=== PATIENT | female | born 1950 | race Caucasian/White ===

== ENCOUNTER 2022-10-25 11:08 | Outpatient (REF) | payer MEDICARE, OTHER, SELFPAY ==
--- NOTE | ~2022-10-25 | XR_ITS ---
EXAMINATION: XR hand wrist LT, XR hand wrist RT CLINICAL INFORMATION: Rheumatoid arthritis COMPARISON: None TECHNIQUE: 4 views of the bilateral hands and wrists FINDINGS: RIGHT HAND/WRIST: No fracture or dislocation. Osteopenia. Advanced osteoarthritis involving the hand and wrist with complete loss of triscaphe joint space and loss of interphalangeal joint space, with a gullwing deformity third and to a lesser extent fourth and fifth DIP joint spaces which may reflect erosive osteoarthritis. Loss of second through fourth metacarpophalangeal joint space with a periarticular cortical erosion of the base of the second proximal phalanx which could be seen in the setting of inflammatory arthropathy such as rheumatoid arthritis. Soft tissues are unremarkable. LEFT HAND/WRIST: No fracture or dislocation. Moderate osteoarthritis involving the triscaphe joint with loss of joint space with advanced degenerative changes of the distal interphalangeal joints with loss of joint space and osteophytosis with a gullwing deformity involving the third through fifth distal interphalangeal joints which be seen in the setting of erosive osteoarthritis. No cortical erosion. Soft tissues are unremarkable. XR/XR hand wrist LT IMPRESSION: 1. Right hand and wrist: Advanced osteoarthritis involving the hand and wrist with a gullwing deformity third and to a lesser extent fourth and fifth DIP joint spaces which may reflect erosive osteoarthritis. Loss of second through fourth metacarpophalangeal joint space with a periarticular cortical erosion of the base of the second proximal phalanx which could be seen in the setting of inflammatory arthropathy such as rheumatoid arthritis. 2. Left: Moderate osteoarthritis involving the triscaphe joint with loss of joint space with osteophytosis with a gullwing deformity involving the third through fifth distal interphalangeal joints which be seen in the setting of erosive osteoarthritis.
--- NOTE | ~2022-10-25 | XR_ITS ---
EXAMINATION: XR hand wrist LT, XR hand wrist RT CLINICAL INFORMATION: Rheumatoid arthritis COMPARISON: None TECHNIQUE: 4 views of the bilateral hands and wrists FINDINGS: RIGHT HAND/WRIST: No fracture or dislocation. Osteopenia. Advanced osteoarthritis involving the hand and wrist with complete loss of triscaphe joint space and loss of interphalangeal joint space, with a gullwing deformity third and to a lesser extent fourth and fifth DIP joint spaces which may reflect erosive osteoarthritis. Loss of second through fourth metacarpophalangeal joint space with a periarticular cortical erosion of the base of the second proximal phalanx which could be seen in the setting of inflammatory arthropathy such as rheumatoid arthritis. Soft tissues are unremarkable. LEFT HAND/WRIST: No fracture or dislocation. Moderate osteoarthritis involving the triscaphe joint with loss of joint space with advanced degenerative changes of the distal interphalangeal joints with loss of joint space and osteophytosis with a gullwing deformity involving the third through fifth distal interphalangeal joints which be seen in the setting of erosive osteoarthritis. No cortical erosion. Soft tissues are unremarkable. XR/XR hand wrist RT IMPRESSION: 1. Right hand and wrist: Advanced osteoarthritis involving the hand and wrist with a gullwing deformity third and to a lesser extent fourth and fifth DIP joint spaces which may reflect erosive osteoarthritis. Loss of second through fourth metacarpophalangeal joint space with a periarticular cortical erosion of the base of the second proximal phalanx which could be seen in the setting of inflammatory arthropathy such as rheumatoid arthritis. 2. Left: Moderate osteoarthritis involving the triscaphe joint with loss of joint space with osteophytosis with a gullwing deformity involving the third through fifth distal interphalangeal joints which be seen in the setting of erosive osteoarthritis.
--- NOTE | ~2022-10-25 | XR_ITS ---
EXAMINATION: XR ELBOW, LEFT CLINICAL INFORMATION: Left elbow rheumatoid arthritis, unspecified COMPARISON: None available. TECHNIQUE: AP, lateral, and oblique views of the left elbow. FINDINGS: No evidence for acute bony fracture or dislocation. The left radial head appears to be intact. No appreciable distention of the elbow fat pads. There is no evidence for erosive process. XR/XR elbow LT min 3V IMPRESSION: No evidence for acute process.
--- NOTE | ~2022-10-25 | XR_ITS ---
EXAMINATION: XR ELBOW, RIGHT CLINICAL INFORMATION: Right elbow rheumatoid arthritis, unspecified COMPARISON: None available. TECHNIQUE: AP, lateral, and oblique views of the right elbow. FINDINGS: No evidence for acute fracture or dislocation. Minimal spurring of the lateral epicondylar surface. There is a small ossicle adjacent to the medial epicondyle. No distinct erosive process. XR/XR elbow RT min 3V IMPRESSION: No evidence for acute process. Minimal degenerative changes.
[2022-10-25 12:19] LABS: MANUAL DIFF FLAG NO
[2022-10-25 13:36] LABS: Basophils Absolute Auto 0.1 X10*3/uL (0.0-0.2); Eosinophils Absolute Auto 0.2 X10*3/uL (0.0-0.4); Eosinophils Percent Auto 3.3 % (0-4); Hematocrit 41.6 % (37.0-47.0); Hemoglobin 13.4 g/dl (12.0-16.0); Imm Gran Abs Auto 0.03 X10*3/uL (0.00-0.03); Imm Gran Pct Auto 0.5 % (0.0-0.4); Lymphocytes Absolute Auto 1.4 X10*3/uL (1.2-4.9); Mean Corpuscular HGB Conc 32.2 g/dl (31.0-35.0); Mean Corpuscular Hemoglobin 29.8 pg (27.0-33.0); Mean Corpuscular Volume 92.4 fL (80.0-98.0); Mean Platelet Volume 9.2 fL (9.4-12.3); Monocytes Absolute Auto 0.6 X10*3/uL (0.1-1.2); Monocytes Percent Auto 8.9 % (2-11); Neutrophils Percent Auto 64.3 % (45-73); Platelet Count 362 X10*3/uL (160-400); White Blood Count 6.2 X10*3/uL (4.8-10.8)
[2022-10-25 14:15] LABS: Erythrocyte Sedimentation Rate 13 MM/HR (0-20)
[2022-10-25 14:20] LABS: Alanine Aminotransferase 14 U/L (0-31); Albumin Level 4.1 g/dL (3.5-5.0); Alkaline Phosphatase 71 U/L (39-117); Anion Gap 12 (12-20); Aspartate Amino Transferase 21 U/L (5-31); Bilirubin Total 0.3 mg/dL (0.0-1.0); Blood Urea Nitrogen 18 mg/dL (9-16); C Reactive Protein 0.73 mg/dL (< or = 0.50); Calcium 9.1 mg/dL (8.4-10.2); Carbon Dioxide 25 mmol/L (22-29); Chloride 102 mmol/L (96-108); Estimated Glomerular Filt Rate > 60; Glucose Random 86 mg/dL (60-115); Potassium 4.7 mmol/L (3.3-5.1); Sodium 134 mmol/L (135-145); Total Protein 6.9 g/dL (6.5-8.0)
[2022-10-25 16:09] LABS: Rheumatoid Factor < 13.0 IU/mL (<15.0)
[2022-10-26 04:22] LABS: HBS Num1 0.39 mIU/mL (0-7.99); HBc Num1 0.07 S/CO (0.00-0.79); Hepatitis A Antibody IgM 0.17 Index (0-0.79); Hepatitis B Core Antibody Nonreactive (Nonreactive); Hepatitis B Surface Antigen Negative (Negative); ~HepC Num1 0.06 S/CO (0.00-0.79); ~Hepatitis A Antibody IgM Nonreactive (Nonreactive); ~Hepatitis B Surface Antibody NONREACTIVE (Nonreactive); ~Hepatitis C Antibody Nonreactive (Nonreactive)
[2022-10-27 12:18] LABS: Prot Elec - Albumin 4.2 g/dL (3.8-4.8); Prot Elec - Alpha1 0.3 g/dL (0.2-0.3); Prot Elec - Alpha2 0.8 g/dL (0.5-0.9); Prot Elec - Beta 1 0.5 g/dL (0.4-0.6); Prot Elec - Beta 2 0.3 g/dL (0.2-0.5); Prot Elec - Gamma 0.6 g/dL (0.8-1.7); Prot Elec - Total Protein 6.7 g/dL (6.1-8.1)
[2022-10-27 17:03] LABS: TS Negative Control Passed; TS Panel A 0; TS Panel B 0; TS Positive Control Passed; TSpotTB Negative (Negative)
[2022-10-28 12:38] LABS: IgA 79 mg/dL (70-320); IgG 657 mg/dL (600-1540); IgM 27 mg/dL (50-300)
[2022-10-28 15:32] LABS: Cyclic Citrullinated Peptide <16 UNITS
[2022-10-29 18:44] LABS: HLA B27 Negative (Negative)
== END 2022-10-25 11:09 | disposition home or self-care (01) ==
LOC: HO.XRAY 11:08
PROVIDERS: Visit Provider Student in an Organized Health Care Education/Training Program
DX: M06.9 Rheumatoid arthritis, unspecified (principal); M18.11 Unilateral primary osteoarthritis of first carpometacarpal joint, right hand; M25.50 Pain in unspecified joint; M79.7 Fibromyalgia; M81.0 Age-related osteoporosis without current pathological fracture; Z11.59 Encounter for screening for other viral diseases; Z11.7 Encounter for testing for latent tuberculosis infection; Z79.899 Other long term (current) drug therapy; Z72.89 Other problems related to lifestyle
CPT/HCPCS: 36415; 73080; 73110; 73130; 80053; 82784; 84165; 85025; 85652; 86140; 86200; 86334; 86431; 86481; 86704; 86706; 86709; 86803; 86812; 87340; 99202

== ENCOUNTER 2022-10-25 11:08 | Outpatient (AMB) | payer MEDICARE, SELFPAY ==
--- NOTE | 2022-10-25 11:12 | MHC.OFFVIS ---
Intake Vital Signs 10/25/22 11:13 Height 5 ft Weight 201 lb 11.567 oz BMI 39.4 BP 142/78 H Blood Pressure Location Rt brachial Position Sitting Pulse 50 Pulse Source Pulse Oximeter Temp 97.2 F Temp Source Skin Pulse Oximetry (%) 94 Intake Visit Reasons: FM Intake Note: New pt presents today for FM consult. 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 Accompanied by: Self / Same As Patient Allergies azithromycin [From Zithromax] Allergy (Mild, Verified 10/25/22 11:16) Hives bupropion Allergy (Mild, Verified 10/25/22 11:16) Unknown vaccine adjuvant system, AS01B lipo [From Shingrix (PF)] Allergy (Mild, Verified 10/25/22 11:16) Rash varicella-zoster virus glycoprotein [From Shingrix (PF)] Allergy (Mild, Verified 10/25/22 11:16) Rash chant ix Allergy (Severe, Uncoded 10/25/22 11:16) Unknown Medication List - Last Reconciled 10/25/22 by Jeffery Hansen MD alendronate 70 mg PO QWEEK ferrous sulfate (FeroSul) 325 mg PO Q OTHER DAY fluoxetine 40 mg PO DAILY gabapentin 100 mg PO TID hydrochlorothiazide 12.5 mg PO DAILY lisinopril 20 mg PO DAILY omeprazole 20 mg PO DAILY propranolol ER 120 mg PO DAILY ropinirole 0.25 mg PO BEDTIME sulfasalazine 0.5 grams PO BID topiramate 25 mg PO DAILY trazodone 100 mg PO BEDTIME HPI HPI Comments History of Present Illness Details This is a 72-year-old female with past medical history fibromyalgia, rheumatoid arthritis who presents as a new patient. Her previous camp recreation specialist left the practice. Patient states that she was diagnosed with rheumatoid arthritis by Dr. Azul with a 10 years ago. She has been on multiple meds, she does not recall her name but she has been on sulfasalazine for years now. Patient states that she has diffuse pain everywhere. She gets intermittent pain in her elbows, both thumbs as well as ankles and feet. Takes Tylenol in the morning and can take another 1 at night. Hot shower also helps. [facility] Medical History (Updated 10/25/22 @ 11:46 by Jeffery Hansen MD) Abnormal findings on diagnostic imaging of breast Anemia Anxiety Atrophic vaginitis Cardiac arrhythmia Degenerative joint disease Essential hypertension Essential tremor Fracture of radius Insomnia Major depressive disorder Morbid obesity Polyp of colon Prolonged QT interval Restless legs Surgical History H/O total hysterectomy History of bariatric surgery History of carpal tunnel surgery History of cataract surgery History of tonsillectomy Family History Mother Malignant neoplasm of uterus Father Diabetes mellitus type 2, controlled Paternal Uncle Alcoholism Brother Cerebrovascular accident Social History Household Members: Spouse Alcohol intake: current Alcohol intake frequency: holidays/special occasions only Patient Tobacco Use Status: Never used Tobacco Current occupational status: retired 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, 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, 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Review of Systems Const Reports fatigue and Reports weakness Eyes Reports itchy eyes and Reports eye pain Card Reports dyspnea Resp Reports dyspnea Musc Reports arthralgias and Reports stiffness Neuro Reports weakness Endo Reports fatigue Aller/Immun Reports itchy eyes Physical Exam Vital Signs: Last Vital Signs Temp 97.2 F 10/25/22 11:13 Pulse 50 10/25/22 11:13 BP 142/78 H 10/25/22 11:13 Pulse Ox 94 10/25/22 11:13 BMI result Body Mass Index 39.4 Const General: cooperative, healthy appearing and comfortable Nutritional Appearance: obese Orientation/consciousness: patient oriented x3 Limitations: no limitations HEENT Head: Yes normocephalic and Yes atraumatic Mouth: moist mucous membranes Resp Effort & Inspection: normal respiratory effort and able to speak in complete sentences Auscultation: clear to auscultation bilaterally Cardio Rate: regular rate Rhythm: regular rhythm Skin General skin exam: no rashes or lesions noted Neuro General: patient oriented x3 Extrem Other: Mild osteoarthritic changes of both hands with Heberden's nodes Bilateral 1st CMC joint tenderness Positive grind test with pain and crepitus bilaterally Mild right wrist swelling and tenderness Bilateral wrist pain with full flexion and extension Right elbow pain with full extension Normal range of motion of both shoulders Mild pain with left knee flexion Bilateral diffuse MTP tenderness Diffuse fibromyalgia tender points Assessment & Plan Assessment & Plan (1) Rheumatoid arthritis: Code(s): M06.9 - Rheumatoid arthritis, unspecified Qualifiers: Rheumatoid arthritis location: multiple sites Rheumatoid factor presence: unspecified presence Qualified Code(s): M06.9 - Rheumatoid arthritis, unspecified Plan: This is a 72-year-old female was referred for evaluation of fibromyalgia. Patient states that she was diagnosed with rheumatoid arthritis about [address] Azul. States that she has been on sulfasalazine consistently for years now. Will request records from Dr. Azul. Check labs to monitor disease active. Check x-rays of hands and elbows (2) Degenerative arthritis of thumb: Code(s): M18.10 - Unilateral primary osteoarthritis of first carpometacarpal joint, unspecified hand Qualifiers: Laterality: right Qualified Code(s): M18.11 - Unilateral primary osteoarthritis of first carpometacarpal joint, right hand Plan: Check bilateral hand x-rays. Patient can continue to take Tylenol. Advised patient to try using Voltaren gel 4 times a day. Patient's daughter is an occupational therapist, advised patient to discuss hand osteoarthritis with her. Consider buying paraffin wax machine. Can consider injection in the future (3) Osteoporosis: Code(s): M81.0 - Age-related osteoporosis without current pathological fracture Plan: Managed by PCP (4) Fibromyalgia: Code(s): M79.7 - Fibromyalgia Plan: Managed by PCP Plan I spent 47 minutes reviewing patient's chart, evaluating patient, ordering diagnostic workup, counseling patient and documenting in the chart Orders: Orders Cyclic Citrullinated Peptide Today M06.9 - Rheumatoid arthritis, unspecified Comprehensive Met. Panel Today M06.9 - Rheumatoid arthritis, unspecified C Reactive Protein Today M06.9 - Rheumatoid arthritis, unspecified Rheumatoid Factor Today M06.9 - Rheumatoid arthritis, unspecified Complete Blood Count Auto Diff Today M06.9 - Rheumatoid arthritis, unspecified Erythrocyte Sedimentation Rate Today M06.9 - Rheumatoid arthritis, unspecified HLA B27 Today M25.50 - Pain in unspecified joint Immunofixation Pnl, Serum Today M06.9 - Rheumatoid arthritis, unspecified Protein Electrophoresis, Serum Today M06.9 - Rheumatoid arthritis, unspecified Hepatitis A,B,C Profile Today Z11.59 - Encounter for screening for other viral diseases T Spot TB Today Z11.7 - Encounter for testing for latent tuberculosis infection XR elbow LT min 3V Today M06.9 - Rheumatoid arthritis, unspecified XR elbow RT min 3V Today M06.9 - Rheumatoid arthritis, unspecified XR hand wrist LT Today M06.9 - Rheumatoid arthritis, unspecified XR hand wrist RT Today M06.9 - Rheumatoid arthritis, unspecified Coding Level of Care Code New Pt Level 4 (05834) Diagnoses Rheumatoid arthritis M06.9 Rheumatoid arthritis location: multiple sites Rheumatoid factor presence: unspecified presence Degenerative arthritis of thumb M18.11 Laterality: right Osteoporosis M81.0 Fibromyalgia M79.7
[2022-10-25 11:13] VITALS: BP 142/78; PULSE 50; TEMP 36.2; O2SAT 94; BMI 39.4
== END 2022-10-25 11:41 | disposition home or self-care (01) ==
PROVIDERS: PCP Physician Assistant Medical; Visit Provider Student in an Organized Health Care Education/Training Program
DX: M06.9 Rheumatoid arthritis, unspecified (principal); M18.11 Unilateral primary osteoarthritis of first carpometacarpal joint, right hand; M81.0 Age-related osteoporosis without current pathological fracture; M79.7 Fibromyalgia
CPT/HCPCS: 99204

== ENCOUNTER 2022-12-28 10:43 | Outpatient (AMB) | payer MEDICARE, SELFPAY ==
--- NOTE | 2022-12-28 10:44 | MHC.OFFVIS ---
Intake Vital Signs 12/28/22 10:45 Height 5 ft Weight 205 lb 0.478 oz BMI 40.0 BP 112/64 Blood Pressure Location Rt brachial Position Sitting Pulse 52 Pulse Source Pulse Oximeter Temp 97.1 F Temp Source Skin Pulse Oximetry (%) 95 Intake Visit Reasons: RA/OA Intake Note: Pt last seen 10/25/22, presents today for follow up and test results. Managing with tylenol and voltaren gel. 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 Accompanied by: Self / Same As Patient Allergies azithromycin [From Zithromax] Allergy (Mild, Verified 12/28/22 10:51) Hives bupropion Allergy (Mild, Verified 12/28/22 10:51) Unknown vaccine adjuvant system, AS01B lipo [From Shingrix (PF)] Allergy (Mild, Verified 12/28/22 10:51) Rash varicella-zoster virus glycoprotein [From Shingrix (PF)] Allergy (Mild, Verified 12/28/22 10:51) Rash chant ix Allergy (Severe, Uncoded 12/28/22 10:51) Unknown Medication List - Last Reconciled 12/28/22 by Jeffery Hansen MD alendronate 70 mg PO QWEEK ferrous sulfate (FeroSul) 325 mg PO Q OTHER DAY fluoxetine 40 mg PO DAILY gabapentin 100 mg PO TID hydrochlorothiazide 12.5 mg PO DAILY ibuprofen (Advil) 400 mg PO Q6H PRN lisinopril 20 mg PO DAILY omeprazole 20 mg PO DAILY propranolol ER 120 mg PO DAILY ropinirole 0.25 mg PO BEDTIME sulfasalazine 0.5 grams PO BID topiramate 25 mg PO DAILY trazodone 100 mg PO BEDTIME HPI HPI Comments History of Present Illness Details 72-year-old female with seronegative arthritis returns for follow-up. She states that she twisted her right knee a few days ago and has been having significant right knee pain and swelling. She was evaluated by Orthopedics and a right knee MRI was ordered which showed a medial meniscal tear, she has a follow-up appointment with Orthopedics. She is currently using a cane. She states that she feels that she is in a flare she has multiple joint pain affecting her elbows, hands, generalized body aches. Initial history: This is a 72-year-old female with past medical history fibromyalgia, rheumatoid arthritis who presents as a new patient. 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 Patient states that she was diagnosed with rheumatoid arthritis by Dr. Azul with a 10 years ago. She has been on multiple meds, she does not recall her name but she has been on sulfasalazine for years now. Patient states that she has diffuse pain everywhere. She gets intermittent pain in her elbows, both thumbs as well as ankles and feet. Takes Tylenol in the morning and can take another 1 at night. Hot shower also helps. [facility] Medical History Cardiac arrhythmia Essential hypertension Atrophic vaginitis Anxiety Major depressive disorder Restless legs Abnormal findings on diagnostic imaging of breast Anemia Degenerative joint disease Insomnia Prolonged QT interval Essential tremor Morbid obesity Fracture of radius Polyp of colon Surgical History History of cataract surgery H/O total hysterectomy History of tonsillectomy History of carpal tunnel surgery History of bariatric surgery Family History Mother Malignant neoplasm of uterus Father Diabetes mellitus type 2, controlled Paternal Uncle Alcoholism Brother Cerebrovascular accident Social History Household Members: Spouse Alcohol intake: current Alcohol intake frequency: holidays/special occasions only Patient Tobacco Use Status: Never used Tobacco Current occupational status: retired 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, 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, 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Review of Systems Eyes Reports eye pain Musc Reports arthralgias, Reports joint swelling and Reports stiffness Physical Exam Vital Signs: Last Vital Signs Temp 97.1 F 12/28/22 10:45 Pulse 52 12/28/22 10:45 BP 112/64 12/28/22 10:45 Pulse Ox 95 12/28/22 10:45 BMI result Body Mass Index 40.0 Const General: cooperative, healthy appearing and comfortable Nutritional Appearance: obese Orientation/consciousness: patient oriented x3 Limitations: ambulation with cane HEENT Head: Yes normocephalic and Yes atraumatic Resp Effort & Inspection: normal respiratory effort and able to speak in complete sentences Neuro General: patient oriented x3 Extrem Other: Mild osteoarthritic changes of both hands with Heberden's nodes Bilateral 1st CMC joint tenderness Positive grind test with pain and crepitus bilaterally Mild right wrist swelling and tenderness Bilateral wrist pain with full flexion and extension Left elbow pain with full extension Normal range of motion of both shoulders Few tender MCPs and PIP is right hand Right knee swelling Diffuse fibromyalgia tender points Assessment & Plan Assessment & Plan (1) Rheumatoid arthritis: Comment: seroneg. +IBETH 1:40 dx around 2019 HCQ DC due to Qtc prolongation SSZ since 2019 Code(s): M06.9 - Rheumatoid arthritis, unspecified Qualifiers: Rheumatoid arthritis location: multiple sites Rheumatoid factor presence: unspecified presence Qualified Code(s): M06.9 - Rheumatoid arthritis, unspecified Plan: This is a 72-year-old female with seronegative arthritis who returns for follow-up. Continues to have multiple tender joints. Will increase sulfasalazine to 1000 mg Twice daily Short prednisone taper for current flare Labs before next visit in 3 months (2) Osteoporosis: Code(s): M81.0 - Age-related osteoporosis without current pathological fracture Plan: Managed by PCP (3) Fibromyalgia: Code(s): M79.7 - Fibromyalgia Plan: Managed by PCP (4) Acute medial meniscus tear of right knee: Code(s): S83.241A - Other tear of medial meniscus, current injury, right knee, initial encounter Qualifiers: Encounter type: initial encounter Qualified Code(s): S83.241A - Other tear of medial meniscus, current injury, right knee, initial encounter Plan: Follow-up with orthopedics Plan I spent 27 minutes reviewing patient's chart, evaluating patient, ordering diagnostic workup, counseling patient and documenting in the chart Orders: Orders Complete Blood Count Auto Diff 3 Months M06.9 - Rheumatoid arthritis, unspecified C Reactive Protein 3 Months M06.9 - Rheumatoid arthritis, unspecified Comprehensive Met. Panel 3 Months M06.9 - Rheumatoid arthritis, unspecified Erythrocyte Sedimentation Rate 3 Months M06.9 - Rheumatoid arthritis, unspecified Medications: New prednisone Take 2 tabs by mouth once daily for 1 week then 1 tab daily for 1 week then stop 21 tabs 0RF Changed From sulfasalazine 0.5 grams PO BID To sulfasalazine 1 g (2 x 500 mg) PO BID 360 tabs 0RF Coding Level of Care Code Est Pt Level 4 (25842) Diagnoses Rheumatoid arthritis involving multiple sites, unspecified whether rheumatoid factor present M06.9 Rheumatoid arthritis location: multiple sites Rheumatoid factor presence: unspecified presence Osteoporosis M81.0 Fibromyalgia M79.7 Acute medial meniscus tear of right knee, initial encounter Y98.301T Encounter type: initial encounter
[2022-12-28 10:45] VITALS: BP 112/64; PULSE 52; TEMP 36.2; O2SAT 95; BMI 40.0
== END 2022-12-28 11:17 | disposition home or self-care (01) ==
PROVIDERS: PCP Physician Assistant Medical; Visit Provider Student in an Organized Health Care Education/Training Program
DX: M06.9 Rheumatoid arthritis, unspecified (principal); M81.0 Age-related osteoporosis without current pathological fracture; M79.7 Fibromyalgia; S83.241A Other tear of medial meniscus, current injury, right knee, initial encounter
CPT/HCPCS: 99214

== ENCOUNTER → 2022-12-28 10:43 | Outpatient (BNVA) | payer MEDICARE, OTHER, SELFPAY | PROVIDERS: PCP Physician Assistant Medical; Visit Provider Student in an Organized Health Care Education/Training Program | DX: M06.00 Rheumatoid arthritis without rheumatoid factor, unspecified site (principal); M81.0 Age-related osteoporosis without current pathological fracture; M79.7 Fibromyalgia; S83.241A Other tear of medial meniscus, current injury, right knee, initial encounter; X58.XXXA Exposure to other specified factors, initial encounter; Y93.9 Activity, unspecified; Y92.9 Unspecified place or not applicable; Y99.9 Unspecified external cause status | CPT/HCPCS: 99212 ==

== ENCOUNTER 2023-04-17 13:58 | Outpatient (AMB) | payer MEDICARE, SELFPAY ==
--- NOTE | 2023-04-17 14:03 | MHC.OFFVIS ---
Intake Vital Signs 04/17/23 14:04 Height 5 ft Weight 206 lb 2.115 oz BMI 40.3 BP 122/74 Blood Pressure Location Lt brachial Position Sitting Temp 96.6 F L Temp Source Skin Intake Visit Reasons: RA Intake Note: Patient last seen 12/28/22 presents today for follow up and test results. She has not completed the bloodwork. Seismograph Observer Required: No Accompanied by: Self / Same As Patient Allergies azithromycin [From Zithromax] Allergy (Mild, Verified 04/17/23 14:08) Hives bupropion Allergy (Mild, Verified 04/17/23 14:08) Unknown vaccine adjuvant system, AS01B lipo [From Shingrix (PF)] Allergy (Mild, Verified 04/17/23 14:08) Rash varicella-zoster virus glycoprotein [From Shingrix (PF)] Allergy (Mild, Verified 04/17/23 14:08) Rash chant ix Allergy (Severe, Uncoded 04/17/23 14:08) Unknown Medication List - Last Reconciled 04/17/23 by Jeffery Hansen MD alendronate 70 mg PO QWEEK ferrous sulfate (FeroSul) 325 mg PO Q OTHER DAY fluoxetine 40 mg PO DAILY gabapentin 100 mg PO TID hydrochlorothiazide 12.5 mg PO DAILY ibuprofen (Advil) 400 mg PO Q6H PRN lisinopril 20 mg PO DAILY omeprazole 20 mg PO DAILY propranolol ER 120 mg PO DAILY ropinirole 0.25 mg PO BEDTIME sulfasalazine 1 g (2 x 500 mg) PO BID topiramate 25 mg PO DAILY trazodone 100 mg PO BEDTIME HPI HPI Comments History of Present Illness Details 72-year-old female with seronegative arthritis returns for follow-up. On sulfasalazine 1000 mg Twice daily. She stated that prednisone taper prescribed last visit was somewhat helpful. She does not believe that increasing the sulfasalazine to 1000 mg Twice daily was helpful. She continues to have diffuse pain everywhere. The majority of her pain is in her right knee where she had a torn meniscus. She was evaluated by Orthopedics and they suggested physical therapy. She does not believe physical therapy is helping. She is now using a walker she has a follow-up appointment with Orthopedics on 04/25. She is having diffuse pain everywhere. She takes at least 4 Tylenol a day, she can not tell whether it helps. Initial history: This is a 72-year-old female with past medical history fibromyalgia, rheumatoid arthritis who presents as a new patient. 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 Patient states that she was diagnosed with rheumatoid arthritis by Dr. Azul with a 10 years ago. She has been on multiple meds, she does not recall her name but she has been on sulfasalazine for years now. Patient states that she has diffuse pain everywhere. She gets intermittent pain in her elbows, both thumbs as well as ankles and feet. Takes Tylenol in the morning and can take another 1 at night. Hot shower also helps. [facility] Medical History Cardiac arrhythmia Essential hypertension Atrophic vaginitis Anxiety Major depressive disorder Restless legs Abnormal findings on diagnostic imaging of breast Anemia Degenerative joint disease Insomnia Prolonged QT interval Essential tremor Morbid obesity Fracture of radius Polyp of colon Surgical History History of cataract surgery H/O total hysterectomy History of tonsillectomy History of carpal tunnel surgery History of bariatric surgery Family History Mother Malignant neoplasm of uterus Father Diabetes mellitus type 2, controlled Paternal Uncle Alcoholism Brother Cerebrovascular accident Social History Household Members: Spouse Alcohol intake: current Alcohol intake frequency: holidays/special occasions only Patient Tobacco Use Status: Never used Tobacco Current occupational status: retired 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, 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, 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Review of Systems [facility] Reports arthralgias, Reports joint swelling and Reports stiffness Physical Exam Vital Signs: Last Vital Signs Temp 96.6 F L 04/17/23 14:04 BP 122/74 04/17/23 14:04 BMI result Body Mass Index 40.3 Const General: cooperative, healthy appearing and comfortable Nutritional Appearance: obese Orientation/consciousness: patient oriented x3 Limitations: ambulation with cane HEENT Head: Yes normocephalic and Yes atraumatic Resp Effort & Inspection: normal respiratory effort and able to speak in complete sentences Neuro General: patient oriented x3 Extrem Other: Mild osteoarthritic changes of both hands with Heberden's nodes Bilateral 1st CMC joint tenderness Positive grind test with pain and crepitus bilaterally Bilateral wrist pain with full flexion and extension Left elbow pain with full extension Normal range of motion of both shoulders Few tender MCPs and PIPs right hand Right knee swelling and warmth Diffuse fibromyalgia tender points Assessment & Plan Assessment & Plan (1) Rheumatoid arthritis: Comment: seroneg. +IBETH 1:40 dx around 2019 HCQ DC due to Qtc prolongation SSZ since 2019 Code(s): M06.9 - Rheumatoid arthritis, unspecified Qualifiers: Rheumatoid arthritis location: multiple sites Rheumatoid factor presence: unspecified presence Qualified Code(s): M06.9 - Rheumatoid arthritis, unspecified Plan: This is a 72-year-old female with seronegative arthritis who returns for follow-up. On sulfasalazine 1000 mg Twice daily. Advised patient to get disease activity labs done as soon as she can Continue sulfasalazine 1000 mg Twice daily Labs before next visit in 3 months (2) Osteoporosis: Code(s): M81.0 - Age-related osteoporosis without current pathological fracture Qualifiers: Osteoporosis type: age-related Presence of current pathological fracture: without current pathological fracture Qualified Code(s): M81.0 - Age-related osteoporosis without current pathological fracture Plan: Managed by PCP (3) Fibromyalgia: Code(s): M79.7 - Fibromyalgia Plan: Managed by PCP (4) Acute medial meniscus tear of right knee: Code(s): S83.241A - Other tear of medial meniscus, current injury, right knee, initial encounter Qualifiers: Encounter type: initial encounter Qualified Code(s): S83.241A - Other tear of medial meniscus, current injury, right knee, initial encounter Plan: Follow-up with orthopedics Plan I spent 27 minutes reviewing patient's chart, evaluating patient, ordering diagnostic workup, counseling patient and documenting in the chart Orders: Orders Complete Blood Count Auto Diff 3 Months M06.9 - Rheumatoid arthritis, unspecified Comprehensive Met. Panel 3 Months M06.9 - Rheumatoid arthritis, unspecified C Reactive Protein 3 Months M06.9 - Rheumatoid arthritis, unspecified Erythrocyte Sedimentation Rate 3 Months M06.9 - Rheumatoid arthritis, unspecified Coding Level of Care Code Est Pt Level 4 (22437) Diagnoses Rheumatoid arthritis involving multiple sites, unspecified whether rheumatoid factor present M06.9 Rheumatoid arthritis location: multiple sites Rheumatoid factor presence: unspecified presence Age-related osteoporosis without current pathological fracture M81.0 Osteoporosis type: age-related Presence of current pathological fracture: without current pathological fracture Fibromyalgia M79.7 Acute medial meniscus tear of right knee, initial encounter S83.400A Encounter type: initial encounter
[2023-04-17 14:04] VITALS: BP 122/74; TEMP 35.9; BMI 40.3
== END 2023-04-17 14:39 | disposition home or self-care (01) ==
PROVIDERS: PCP Physician Assistant Medical; Visit Provider Student in an Organized Health Care Education/Training Program
DX: M06.9 Rheumatoid arthritis, unspecified (principal); M81.0 Age-related osteoporosis without current pathological fracture; M79.7 Fibromyalgia; S83.241A Other tear of medial meniscus, current injury, right knee, initial encounter
CPT/HCPCS: 99214

== ENCOUNTER → 2023-04-17 13:58 | Outpatient (BNVA) | payer MEDICARE, OTHER, SELFPAY | PROVIDERS: PCP Physician Assistant Medical; Visit Provider Student in an Organized Health Care Education/Training Program | DX: M06.9 Rheumatoid arthritis, unspecified (principal); M81.0 Age-related osteoporosis without current pathological fracture; M79.7 Fibromyalgia; S83.241D Other tear of medial meniscus, current injury, right knee, subsequent encounter; Z79.52 Long term (current) use of systemic steroids; Z79.899 Other long term (current) drug therapy | CPT/HCPCS: 99212 ==

== ENCOUNTER 2023-08-14 15:25 | Outpatient (AMB) | payer MEDICARE, OTHER, SELFPAY ==
[2023-08-14 15:28] VITALS: BP 118/62; PULSE 52; O2SAT 97; BMI 39.3
--- NOTE | 2023-08-14 15:28 | A.OFFVIS_ITS ---
Vital Signs 08/14/23 15:28 Height 5 ft Weight 201 lb 8.04 oz BMI 39.3 BP 118/62 Blood Pressure Location Rt brachial Position Sitting Pulse 52 Pulse Source Pulse Oximeter Pulse Oximetry (%) 97 Oxygen Delivery Method Room Air Intake Visit Reasons: RA/CM Intake Note: Pt seen today for RA follow up. Assistant Engineer Required: No Accompanied by: Self / Same As Patient Allergies azithromycin [From Zithromax] Allergy (Mild, Verified 08/14/23 15:37) Hives bupropion Allergy (Mild, Verified 08/14/23 15:37) Unknown vaccine adjuvant system, AS01B lipo [From Shingrix (PF)] Allergy (Mild, Verified 08/14/23 15:37) Rash varicella-zoster virus glycoprotein [From Shingrix (PF)] Allergy (Mild, Verified 08/14/23 15:37) Rash chant ix Allergy (Severe, Uncoded 08/14/23 15:37) Unknown Medication List - Last Reconciled 08/14/23 by Jeffery Hansen MD alendronate 70 mg PO QWEEK fluoxetine 40 mg PO DAILY gabapentin 100 mg PO TID hydrochlorothiazide 12.5 mg PO DAILY ibuprofen (Advil) 400 mg PO Q6H PRN lisinopril 20 mg PO DAILY propranolol ER 120 mg PO DAILY ropinirole 0.25 mg PO BEDTIME sulfasalazine 1 g (2 x 500 mg) PO BID trazodone 100 mg PO BEDTIME HPI Comments Details: 73-year-old female with seronegative rheumatoid arthritis returns for follow-up. On sulfasalazine 1000 mg Twice daily. She continues to have multiple joint pains but feels that it has not unusual for her age. She was evaluated by an orthopedist for her right knee meniscal tear and she received 2 of 3 scheduled injections, I believe these are gel injections. Initial history: This is a 72-year-old female with past medical history fibromyalgia, rheumatoid arthritis who presents as a new patient. Her previous reading assistant left the practice. Patient states that she was diagnosed with rheumatoid arthritis by Dr. Azul with a 10 years ago. She has been on multiple meds, she does not recall her name but she has been on sulfasalazine for years now. Patient states that she has diffuse pain everywhere. She gets intermittent pain in her elbows, both thumbs as well as ankles and feet. Takes Tylenol in the morning and can take another 1 at night. Hot shower also helps. [facility] Medical History Cardiac arrhythmia Essential hypertension Atrophic vaginitis Anxiety Major depressive disorder Restless legs Abnormal findings on diagnostic imaging of breast Anemia Degenerative joint disease Insomnia Prolonged QT interval Essential tremor Morbid obesity Fracture of radius Polyp of colon Surgical History History of cataract surgery H/O total hysterectomy History of tonsillectomy History of carpal tunnel surgery History of bariatric surgery Family History Mother Malignant neoplasm of uterus Father Diabetes mellitus type 2, controlled Paternal Uncle Alcoholism Brother Cerebrovascular accident Social History Household Members: Spouse Alcohol intake: current Alcohol intake frequency: holidays/special occasions only Patient Tobacco Use Status: Never used Tobacco Current occupational status: retired 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, 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, 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[place] [facility] [place] arthralgias, Reports joint swelling and Reports stiffness Physical Exam Vital Signs: Last Vital Signs Pulse 52 08/14/23 15:28 BP 118/62 08/14/23 15:28 Pulse Ox 97 08/14/23 15:28 Oxygen Delivery Method Room Air 08/14/23 15:28 BMI result Body Mass Index 39.3 Const General: cooperative, healthy appearing and comfortable Nutritional Appearance: obese Orientation/consciousness: patient oriented x3 Limitations: ambulation with cane HEENT Head: Yes normocephalic and Yes atraumatic Resp Effort & Inspection: normal respiratory effort and able to speak in complete sentences Neuro General: patient oriented x3 Extrem Other: Mild osteoarthritic changes of both hands with Heberden's nodes Bilateral 1st CMC joint tenderness Positive grind test with pain and crepitus bilaterally Bilateral wrist pain with full flexion and extension , minimal swelling Bilateral elbow pain with full extension Normal range of motion of both shoulders Multiple tender MCPs and PIPs bilaterally Bilateral knee warmth Left ankle tenderness Negative MTP squeeze test bilaterally Diffuse fibromyalgia tender points Assessment & Plan Assessment & Plan (1) Rheumatoid arthritis: Comment: seroneg. +IBETH 1:40 dx around 2019 HCQ DC due to Qtc prolongation SSZ since 2019 Code(s): M06.9 - Rheumatoid arthritis, unspecified Category: Medical Qualifiers: Rheumatoid arthritis location: multiple sites Rheumatoid factor presence: unspecified presence Qualified Code(s): M06.9 - Rheumatoid arthritis, unspecified Plan: This is a 73-year-old female with seronegative rheumatoid arthritis who returns for follow-up. On sulfasalazine 1000 mg Twice daily. Continues to have multiple swollen and tender joints. Inflammatory markers elevated, anemic, low albumin. Will need to add DMARDs. Discussed risks and benefits of methotrexate. Patient agreed to proceed. Start methotrexate 15 mg weekly for 2 weeks then 20 mg once weekly Start folic acid 1 mg daily Continue sulfasalazine 1000 mg Twice daily Labs before next visit in 2 months (2) Osteoporosis: Code(s): M81.0 - Age-related osteoporosis without current pathological fracture Category: Medical Qualifiers: Osteoporosis type: age-related Presence of current pathological fracture: without current pathological fracture Qualified Code(s): M81.0 - Age- related osteoporosis without current pathological fracture Plan: Managed by PCP (3) Fibromyalgia: Code(s): M79.7 - Fibromyalgia Category: Medical Plan: Managed by PCP (4) Acute medial meniscus tear of right knee: Code(s): S83.241A - Other tear of medial meniscus, current injury, right knee, initial encounter Category: Medical Qualifiers: Encounter type: initial encounter Qualified Code(s): S83.241A - Other tear of medial meniscus, current injury, right knee, initial encounter Plan: Was evaluated by orthopedist and received 2 of 3 scheduled injection . 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 Panel 2 Months M06.9 - Rheumatoid arthritis, unspecified, Z79.631 - terminal operator (current) use of antimetabolite agent C Reactive Protein 2 Months M06.9 - Rheumatoid arthritis, unspecified, Z79.631 - terminal operator (current) use of antimetabolite agent Erythrocyte Sedimentation Rate 2 Months M06.9 - Rheumatoid arthritis, unspecified, Z79.631 - terminal operator (current) use of antimetabolite agent Medications: New folic acid 1 mg PO DAILY 90 tabs 1RF methotrexate sodium Take 6 tabs once weekly for 2 weeks then 8 tabs once weekly 64 tabs 0RF Refilled sulfasalazine 1 g (2 x 500 mg) PO BID 360 tabs 1RF Coding Level of Care Code Est Pt Level 4 (50781) Diagnoses Rheumatoid arthritis involving multiple sites, unspecified whether rheumatoid factor present M06.9 Rheumatoid arthritis location: multiple sites Rheumatoid factor presence: unspecified presence Age-related osteoporosis without current pathological fracture M81.0 Osteoporosis type: age-related Presence of current pathological fracture: without current pathological fracture Fibromyalgia M79.7 Acute medial meniscus tear of right knee, initial encounter S83.241A Encounter type: initial encounter intermediate methotrexate user Z79.631
== END 2023-08-14 15:52 | disposition home or self-care (01) ==
PROVIDERS: PCP Physician Assistant Medical; Visit Provider Student in an Organized Health Care Education/Training Program
DX: M06.9 Rheumatoid arthritis, unspecified (principal); M81.0 Age-related osteoporosis without current pathological fracture; M79.7 Fibromyalgia; S83.241A Other tear of medial meniscus, current injury, right knee, initial encounter; Z79.631 Long term (current) use of antimetabolite agent
CPT/HCPCS: 99214

== ENCOUNTER → 2023-08-14 15:25 | Outpatient (BNVA) | payer MEDICARE, OTHER, SELFPAY | PROVIDERS: PCP Physician Assistant Medical; Visit Provider Student in an Organized Health Care Education/Training Program | DX: M06.00 Rheumatoid arthritis without rheumatoid factor, unspecified site (principal); M81.0 Age-related osteoporosis without current pathological fracture; M79.7 Fibromyalgia; S83.241D Other tear of medial meniscus, current injury, right knee, subsequent encounter; Z79.631 Long term (current) use of antimetabolite agent; Z79.899 Other long term (current) drug therapy | CPT/HCPCS: 99212 ==

== ENCOUNTER 2023-12-15 13:50 | Outpatient (AMB) | payer MEDICARE, OTHER, SELFPAY ==
--- NOTE | 2023-12-15 14:10 | MHC.OFFVIS ---
Vital Signs 12/15/23 14:14 Height 5 ft Weight 197 lb 1.492 oz BMI 38.5 BP 122/64 Blood Pressure Location Rt brachial Position Sitting Pulse 52 Pulse Source Pulse Oximeter Pulse Oximetry (%) 97 Oxygen Delivery Method Room Air Intake Visit Reasons: RA/cm Intake Note: Patient presents for RA. Allergies azithromycin [From Zithromax] Allergy (Mild, Verified 12/15/23 14:13) Hives bupropion Allergy (Mild, Verified 12/15/23 14:13) Unknown vaccine adjuvant system, AS01B lipo [From Shingrix (PF)] Allergy (Mild, Verified 12/15/23 14:13) Rash varicella-zoster virus glycoprotein [From Shingrix (PF)] Allergy (Mild, Verified 12/15/23 14:13) Rash chant ix Allergy (Severe, Uncoded 08/14/23 15:37) Unknown Medication List - Last Reconciled 12/15/23 by Jeffery Hansen MD alendronate 70 mg PO QWEEK fluoxetine 40 mg PO DAILY folic acid 1 mg PO DAILY gabapentin 100 mg PO TID hydrochlorothiazide 12.5 mg PO DAILY ibuprofen (Advil) 400 mg PO Q6H PRN lisinopril 20 mg PO DAILY methotrexate sodium 20 mg (8 x 2.5 mg) PO QWEEK propranolol ER 120 mg PO DAILY ropinirole 0.25 mg PO BEDTIME sulfasalazine 1 g (2 x 500 mg) PO BID trazodone 100 mg PO BEDTIME HPI Comments Details: 73-year-old female with seronegative rheumatoid arthritis returns for follow-up. On sulfasalazine 1000 mg Twice daily. After last visit we started methotrexate. She has been taking methotrexate regularly for the last 3-4 months. She continues to have multiple joint pains especially her hands, her knees, her elbows. She feels however that the pains are reduced. She has not noticed any side effects related to methotrexate. Initial history: This is a 72-year-old female with past medical history fibromyalgia, rheumatoid arthritis who presents as a new patient. Her previous production intern left the practice. Patient states that she was diagnosed with rheumatoid arthritis by Dr. Azul with a 10 years ago. She has been on multiple meds, she does not recall her name but she has been on sulfasalazine for years now. Patient states that she has diffuse pain everywhere. She gets intermittent pain in her elbows, both thumbs as well as ankles and feet. Takes Tylenol in the morning and can take another 1 at night. Hot shower also helps. [facility] Medical History Cardiac arrhythmia Essential hypertension Atrophic vaginitis Anxiety Major depressive disorder Restless legs Abnormal findings on diagnostic imaging of breast Anemia Degenerative joint disease Insomnia Prolonged QT interval Essential tremor Morbid obesity Fracture of radius Polyp of colon Surgical History History of cataract surgery H/O total hysterectomy History of tonsillectomy History of carpal tunnel surgery History of bariatric surgery Family History Mother Malignant neoplasm of uterus Father Diabetes mellitus type 2, controlled Paternal Uncle Alcoholism Brother Cerebrovascular accident Social History Household Members: Spouse Alcohol intake: current Alcohol intake frequency: holidays/special occasions only Patient Tobacco Use Status: Never used Tobacco Current occupational status: retired 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, 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, 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Review of Systems [facility] [place] Reports arthralgias, Reports joint swelling and Reports stiffness Physical Exam Vital Signs: Last Vital Signs Pulse 52 12/15/23 14:14 BP 122/64 12/15/23 14:14 Pulse Ox 97 12/15/23 14:14 Oxygen Delivery Method Room Air 12/15/23 14:14 BMI result Body Mass Index 38.5 Const General: cooperative, healthy appearing and comfortable Nutritional Appearance: obese Orientation/consciousness: patient oriented x3 Limitations: ambulation with cane HEENT Head: Yes normocephalic and Yes atraumatic Resp Effort & Inspection: normal respiratory effort and able to speak in complete sentences Neuro General: patient oriented x3 Extrem Other: Mild osteoarthritic changes of both hands with Heberden's nodes Bilateral 1st CMC joint tenderness Positive grind test with pain and crepitus bilaterally Bilateral wrist pain with full flexion and extension , no swelling or tenderness today No elbow pain with full flexion and extension bilaterally Normal pain-free range of motion of both shoulders No tender tenderness or swelling of MCPs and PIP is bilaterally today No knee warmth or swelling today Bilateral knee crepitus No ankle swelling or tenderness bilaterally today Negative MTP squeeze test bilaterally Assessment & Plan Assessment & Plan (1) Rheumatoid arthritis: Comment: seroneg. +IBETH 1:40 dx around 2019 HCQ DC due to Qtc prolongation SSZ since 2019 MTX added 07/2023 effective Code(s): M06.9 - Rheumatoid arthritis, unspecified Category: Medical Qualifiers: Rheumatoid arthritis location: multiple sites Rheumatoid factor presence: unspecified presence Qualified Code(s): M06.9 - Rheumatoid arthritis, unspecified Plan: This is a 73-year-old female with seronegative rheumatoid arthritis who returns for follow-up. On sulfasalazine 1000 mg Twice daily. Methotrexate was added last visit with noticeable improvement on exam. There are less swollen and tender joints. Inflammatory markers remain slightly elevated Continue sulfasalazine 1000 mg Twice daily and methotrexate 20 mg once weekly Continue folic acid 1 mg daily Labs before next visit in 4 months (2) Osteoporosis: Code(s): M81.0 - Age-related osteoporosis without current pathological fracture Category: Medical Qualifiers: Osteoporosis type: age-related Presence of current pathological fracture: without current pathological fracture Qualified Code(s): M81.0 - Age-related osteoporosis without current pathological fracture Plan: Managed by PCP (3) Fibromyalgia: Code(s): M79.7 - Fibromyalgia Category: Medical Plan: Managed by PCP (4) 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: Code(s): Z79.631 - senior living (current) use of antimetabolite agent Category: Medical Plan: Monitor safety labs Plan I spent 27 minutes reviewing patient's chart, evaluating patient, ordering diagnostic workup, counseling patient and documenting in the chart Medications: Changed From methotrexate sodium Take 6 tabs once weekly for 2 weeks then 8 tabs once weekly 64 tabs 0RF To methotrexate sodium 20 mg (8 x 2.5 mg) PO QWEEK 104 tabs 0RF Refilled sulfasalazine 1 g (2 x 500 mg) PO BID 360 tabs 1RF Coding Level of Care Code Est Pt Level 4 (32865) Complex EM visit Add On G2211 Diagnoses Rheumatoid arthritis involving multiple sites, unspecified whether rheumatoid factor present M06.9 Rheumatoid arthritis location: multiple sites Rheumatoid factor presence: unspecified presence Age-related osteoporosis without current pathological fracture M81.0 Osteoporosis type: age-related Presence of current pathological fracture: without current pathological fracture Fibromyalgia M79.7 senior living methotrexate user Z79.631
[2023-12-15 14:14] VITALS: BP 122/64; PULSE 52; O2SAT 97; BMI 38.5
== END 2023-12-15 14:43 | disposition home or self-care (01) ==
PROVIDERS: PCP Physician Assistant Medical; Visit Provider Student in an Organized Health Care Education/Training Program
DX: M06.9 Rheumatoid arthritis, unspecified (principal); M81.0 Age-related osteoporosis without current pathological fracture; M79.7 Fibromyalgia; Z79.631 Long term (current) use of antimetabolite agent
CPT/HCPCS: 99214; G2211

== ENCOUNTER → 2023-12-15 13:50 | Outpatient (BNVA) | payer MEDICARE, OTHER, SELFPAY | PROVIDERS: PCP Physician Assistant Medical; Visit Provider Student in an Organized Health Care Education/Training Program | DX: M06.9 Rheumatoid arthritis, unspecified (principal); M81.0 Age-related osteoporosis without current pathological fracture; M79.7 Fibromyalgia; Z79.631 Long term (current) use of antimetabolite agent | CPT/HCPCS: 99212 ==